=== PATIENT | male | born 1940 | race Caucasian/White ===

== ENCOUNTER 2022-01-20 19:44 | Inpatient (IN) | payer MEDICARE ==
[~2022-01-20] VITALS: Ht 180.3 cm; Wt 69.9 kg
--- NOTE | 2022-01-20 19:54 | NUR ---
MARY 89 FROM HOME FOR COMPLAINT OF GEN WEAKNESS, SOB AND LOW O2 SAT 77% ON RA. WAS SICK WITH FLU LIKE SYMPTOMS THIS TUESDAY. PT NOTED WITH CONGESTED COUGH +RHONCHI. +COVID VACCINATED. PT ARRIVED ON NRB 15LPM SATTING 98%. AWAKE AND ALERT X4 TACHYCARDIC AND AFEBRILE. PT CHANGED INTO GOWN AND PLACED ON MONITOR.
[2022-01-20] MEDS ORDERED: CEFTRIAXONE 1GM BAG (ER ONLY) 1 GM/50 ML PIGGYBACK IV ONE (20:00)
[2022-01-20] MEDS ORDERED: AZITHROMYCIN 250 MG TABLET PO ONE (20:00)
[2022-01-20] MEDS ORDERED: methylPREDNISolone SOD SUCC 125 MG/2ML VIAL IV ONE (20:00)
[2022-01-20] MEDS ORDERED: IPRATROPIUM NEB FS 0.5 MG/2.5 ML AMPUL.NEB NEB ONE (20:00)
[2022-01-20] MEDS ORDERED: ALBUTEROL FS 2.5 MG/3 ML VIAL.NEB CONTNEB ONE (20:00)
--- NOTE | 2022-01-20 20:26 | NUR ---
IV CANNULA FROM OUTSIDE IS ON THE LEFT WRIST USING G20 NEEDLE
--- NOTE | 2022-01-20 20:27 | NUR ---
COVID SWAB, INFLUENZA SWAB AND RSV SWAB DONE AND SENT TO LAB
[2022-01-20 20:31] LABS: BASOPHILS % (AUTO) 0.3 % (0.0-2.0); HEMATOCRIT 41 % (39-51); HEMOGLOBIN 13.3 g/dL (13.5-17.5); LYMPHOCYTES # (AUTO) 0.2 K/uL (0.8-4.8); LYMPHOCYTES % (AUTO) 1.5 % (20.0-44.0); MEAN CORPUSCULAR HGB CONC 33 g/dl (31.0-36.0); MEAN CORPUSCULAR VOLUME 83 fL (80-96); MONOCYTES # (AUTO) 0.8 K/uL (0.1-1.30); MONOCYTES % (AUTO) 5.9 % (2.0-12.0); NEUTROPHILS # (AUTO) 12.8 K/uL (1.8-8.9); NEUTROPHILS % (AUTO) 92.3 % (43.0-81.0); PLATELET COUNT (AUTO) 287 K/uL (150-450); RED BLOOD CELL COUNT(AUTO) 4.85 MIL/uL (4.5-6.0); WHITE BLOOD COUNT (AUTO) 13.9 K/uL (4.3-11.0)
[2022-01-20] MEDS ORDERED: methylPREDNISolone SOD SUCC 125 MG/2ML VIAL ONE (20:31)
[2022-01-20] MEDS ORDERED: AZITHROMYCIN 250 MG TABLET ONE (20:31)
[2022-01-20] MEDS ORDERED: CEFTRIAXONE 1GM BAG (ER ONLY) 50 ML IV ONE (20:31)
[2022-01-20 20:44] LABS: CHLORIDE 103 mmol/L (98-107); POTASSIUM 3.7 mmol/L (3.5-5.1); SODIUM SERUM 137 mmol/L (136-145)
[2022-01-20 21:04] LABS: ALANINE AMINOTRANSFERASE 23 U/L (12-78); ALBUMIN 2.6 g/dL (3.4-5.0); ALKALINE PHOSPHATASE 80 U/L (46-116); ASPARTATE AMINOTRANSFERASE 41 U/L (15-37); BILIRUBIN,DIRECT 0.2 mg/dL (0.0-0.2); BILIRUBIN,TOTAL 0.4 mg/dL (0.2-1.0); CALCIUM, SERUM 8.7 mg/dL (8.5-10.1); CARBON DIOXIDE 25 mmol/L (21-32); CREATININE 1.4 mg/dL (0.6-1.3); GLUCOSE 151 mg/dL (74-106); TOTAL PROTEIN, SERUM 7.8 g/dL (6.4-8.2); UREA NITROGEN, BLOOD 23 mg/dL (7-18)
--- NOTE | 2022-01-20 21:07 | NUR ---
TROP 419
[2022-01-20] MEDS ORDERED: ALBUTEROL FS 2.5 MG/3 ML VIAL.NEB ONE (21:10)
[2022-01-20] MEDS ORDERED: IPRATROPIUM NEB FS 0.5 MG/2.5 ML AMPUL.NEB ONE (21:11)
[2022-01-20] MEDS ORDERED: ENOXAPARIN SODIUM 60 MG/0.6 ML DISP.SYRIN SQ ONE (21:30)
[2022-01-20] MEDS ORDERED: ASPIRIN 325 MG TABLET PO ONE (21:30)
--- NOTE | 2022-01-20 21:32 | NUR ---
PER RT, PLACED ON 8L O2 VIA SIMPLE MASK
--- NOTE | 2022-01-20 21:38 | NUR ---
[facility] PAGED
[2022-01-21] MEDS ORDERED: ENOXAPARIN SODIUM 40 MG/0.4 ML DISP.SYRIN SQ SCH
[2022-01-21] MEDS ORDERED: IPRATROPIUM NEB FS 0.5 MG/2.5 ML AMPUL.NEB NEB PRN
[2022-01-21] MEDS ORDERED: ONDANSETRON HCL/PF 4 MG/2 ML VIAL IVP PRN
[2022-01-21] MEDS ORDERED: ALBUTEROL FS 2.5 MG/0.5 ML VIAL.NEB NEB PRN
--- NOTE | 2022-01-21 01:01 | NUR ---
PROCAL 2.96
[2022-01-21] MEDS ORDERED: ASPIRIN 325 MG TABLET ONE (01:27)
[2022-01-21] MEDS ORDERED: ENOXAPARIN SODIUM 60 MG/0.6 ML DISP.SYRIN SQ ONE (01:27)
--- NOTE | 2022-01-21 05:00 | NUR ---
PT IS SLEEPING
[2022-01-21 05:09] LABS: BASOPHILS % (AUTO) 0.1 % (0.0-2.0); HEMATOCRIT 42 % (39-51); HEMOGLOBIN 13.4 g/dL (13.5-17.5); LYMPHOCYTES # (AUTO) 0.3 K/uL (0.8-4.8); LYMPHOCYTES % (AUTO) 1.8 % (20.0-44.0); MEAN CORPUSCULAR HGB CONC 32 g/dl (31.0-36.0); MEAN CORPUSCULAR VOLUME 86 fL (80-96); MONOCYTES # (AUTO) 0.4 K/uL (0.1-1.30); MONOCYTES % (AUTO) 2.3 % (2.0-12.0); NEUTROPHILS # (AUTO) 18.4 K/uL (1.8-8.9); NEUTROPHILS % (AUTO) 95.8 % (43.0-81.0); PLATELET COUNT (AUTO) 276 K/uL (150-450); RED BLOOD CELL COUNT(AUTO) 4.87 MIL/uL (4.5-6.0); WHITE BLOOD COUNT (AUTO) 19.2 K/uL (4.3-11.0)
[2022-01-21 05:33] LABS: CHOLESTEROL 94 mg/dL (<200); HDL CHOLESTEROL 52 mg/dL (40-60); LDL 35 mg/dL (0-99); TRIGLYCERIDES 34 mg/dL (30-150)
[2022-01-21 05:34] LABS: CARBON DIOXIDE 25 mmol/L (21-32); CHLORIDE 103 mmol/L (98-107); CREATININE 1.4 mg/dL (0.6-1.3); GLUCOSE 160 mg/dL (74-106); MAGNESIUM 2.2 mg/dL (1.8-2.4); PHOSPHORUS 4.2 mg/dL (2.5-4.9); SODIUM SERUM 137 mmol/L (136-145); UREA NITROGEN, BLOOD 25 mg/dL (7-18)
[2022-01-21] MEDS ORDERED: methylPREDNISolone SOD SUCC 40 MG/ML VIAL ONE (06:05)
[2022-01-21] MEDS: methylPREDNISolone SOD SUCC 40 MG/ML VIAL IV SCH ×2 (06:05→12:16)
--- NOTE | 2022-01-21 08:11 | NUR ---
BED 107
--- NOTE | 2022-01-21 08:18 | NUR ---
REPORT GIVEN TO NIK JACKSON FOR STEFANIA
--- NOTE | 2022-01-21 09:03 | NUR ---
TRANSFERRED TO BED 108 IN STABLE CONDITION
[2022-01-21] MEDS: CARVEDILOL 3.125 MG TABLET PO SCH ×2 (09:51→21:00)
[2022-01-21] MEDS: ENOXAPARIN SODIUM 60 MG/0.6 ML DISP.SYRIN SQ SCH ×2 (09:54→21:43)
--- NOTE | 2022-01-21 10:00 | NUR ---
ADMISSION NOTES PT ARRIVED ON UNIT WITH DX OF PNA AND HYPOXIA. PT IS A/O X 4. PT STATED HE HAD 3 RECENT FALLS. NO MEDICAL HISTORY AND NO KNOWN ALLERGIES. PT IS ON SIMPLE MASK 8L SATING AT 100%. PT IS FINE DURING MEALS AND COULD BE TITRATED DOWN. ALL WOUNDS DOCUMENTED WITH PICTURES. TELE READS SR. PT ON REG DIET. EATING >75%. IV ACCESS NOTED AT LFA 20G. NO FLUIDS RUNNING AT THIS TIME. ALL SAFETY MEASURES IN PLACE, FALL PRECAUTIONS IN PLACE. WILL CONT. TO MONITOR THROUGHOUT SHIFT.
[2022-01-21 12:00] VITALS: BP 107/67
[2022-01-21 16:00] VITALS: BP 99/62
--- NOTE | 2022-01-21 18:30 | NUR ---
RN CLOSING NOTES PT IS RESTING IN BED, PT IS A/O X 4. PT IS ON SIMPLE MASK 8L SATING AT 100%. PT IS FINE DURING MEALS AND COULD BE TITRATED DOWN. TELE READS SR. IV ACCESS NOTED AT LFA 20G. NO FLUIDS RUNNING AT THIS TIME. ALL SAFETY MEASURES IN PLACE, FALL PRECAUTIONS IN PLACE. WILL ENDORSE TO HOUSEKEEPING AIDE RN FOR STEFANIA.
[2022-01-21 18:54] LABS: SITE, VBG Right Radial; VBG COHb 0.1 %; VBG MetHb 0.4 %; VBG O2Hb 98.7 %
--- NOTE | 2022-01-21 19:15 | NUR ---
RN NOTE PATIENT IN BED, ON SEMI JEFFESRON'S, AAO X 4, IN NO ACUTE DISTRESS, SATURATION AT 93% ON 8L VIA SIMPLE MASK, SR ON THE MONITOR, HR IS 72. IV LINE AT LFA 20G PATENT AND FLUSHING WELL, NO S/S OF INFECTION OR INFILTRATION, SALINE LOCKED. PT IS CONTINENT AND ABLE TO USE URINAL. SAFETY MEASURES IN PLACE, BED IS LOCKED AND AT LOWEST POSITION, CALL LIGHT WITHIN REACH OF PATIENT. WILL CONT TO MONITOR AND REASSESS.
[2022-01-21 20:00] VITALS: BP 106/77
[2022-01-21] MEDS: AZITHROMYCIN 500 MG in IV D5W 250 ML IV SCH (21:37)
[2022-01-21] MEDS: CEFTRIAXONE 1 G in IV D5W 50 ML IV SCH (22:48)
[2022-01-22] VITALS: BP 112/73
[2022-01-22] MEDS: IV NS 0.9% 1,000 ML IV PRN ×2 (00:01→14:45)
[2022-01-22 04:00] VITALS: BP 118/68
[2022-01-22 05:55] LABS: HEMATOCRIT 41 % (39-51); LYMPHOCYTES # (AUTO) 0.6 K/uL (0.8-4.8); LYMPHOCYTES % (AUTO) 2.8 % (20.0-44.0); MEAN CORPUSCULAR HGB CONC 32 g/dl (31.0-36.0); MEAN CORPUSCULAR VOLUME 84 fL (80-96); MONOCYTES # (AUTO) 0.7 K/uL (0.1-1.30); MONOCYTES % (AUTO) 3.2 % (2.0-12.0); NEUTROPHILS # (AUTO) 21.2 K/uL (1.8-8.9); PLATELET COUNT (AUTO) 264 K/uL (150-450); RED BLOOD CELL COUNT(AUTO) 4.83 MIL/uL (4.5-6.0); WHITE BLOOD COUNT (AUTO) 22.6 K/uL (4.3-11.0)
[2022-01-22 06:17] LABS: CALCIUM, SERUM 8.8 mg/dL (8.5-10.1); CARBON DIOXIDE 27 mmol/L (21-32); CHLORIDE 105 mmol/L (98-107); CREATININE 1.4 mg/dL (0.6-1.3); GLUCOSE 127 mg/dL (74-106); POTASSIUM 4.4 mmol/L (3.5-5.1); SODIUM SERUM 138 mmol/L (136-145); UREA NITROGEN, BLOOD 43 mg/dL (7-18)
[2022-01-22 06:24] LABS: ALANINE AMINOTRANSFERASE 17 U/L (12-78); ALBUMIN 2.1 g/dL (3.4-5.0); ALKALINE PHOSPHATASE 68 U/L (46-116); ASPARTATE AMINOTRANSFERASE 30 U/L (15-37); BILIRUBIN,TOTAL 0.2 mg/dL (0.2-1.0); MAGNESIUM 2.3 mg/dL (1.8-2.4); PHOSPHORUS 3.3 mg/dL (2.5-4.9); TOTAL PROTEIN, SERUM 7.3 g/dL (6.4-8.2)
--- NOTE | 2022-01-22 07:00 | NUR ---
RN NOTES RECEIVED PT ON BED, A/Ox4, ON 8L O2 N/C , O2 SAT WNL, NO DISTESS NOTED, IV SITE CDI, NS AT 75 CC/HR RUNNING , SR UP x3, CALL LIGHT WITHIN EASY REACH, BED LOCKED AND IN LOWEST POSITION, CONTINUE TO MONITOR. Addendum: 01/22/22 at 0727 by JANES ZUNIGA RN CORRECTION 8 L O2 FACE MASK
[2022-01-22 08:00] VITALS: BP 118/68
[2022-01-22] MEDS: CARVEDILOL 3.125 MG TABLET PO SCH ×2 (09:07→21:54)
[2022-01-22] MEDS: ENOXAPARIN SODIUM 60 MG/0.6 ML DISP.SYRIN SQ SCH (09:08)
--- NOTE | 2022-01-22 10:00 | NUR ---
RN notes Reduced oxygen from 8L to 5L and changed means of delivery from face mask to nasal cannula. Patient's Spo2 was around 95%, RR WNL, no SOB or labored breathing noted.
--- NOTE | 2022-01-22 10:16 | NUR ---
WOUND CARE CONSULT: REVIEWED CHART, NURSING DOCUMENTATION AND SPOKE WITH NURSING STAFF. PER ABOVE DOCUMENTATION AND RN, PT HAS DRY ABRASIONS TO POSTERIOR SCALP, PRESENT ON ADMISSION. CURRENT BRIAN SCORE IS 19. WILL SEE PRN.
[2022-01-22 12:00] VITALS: BP 109/67
--- NOTE | 2022-01-22 14:00 | NUR ---
RN notes Tried to tail down oxygen further to 4L, but desaturated to 92% despite normal breathing effort, RR 20/min. Increased oxygen back to 5L.
[2022-01-22 15:06] LABS: *SPE A/G RATIO 0.6 (0.7-1.7); *SPE ALPHA-1-GLOBULIN 0.6 g/dL (0.0-0.4); *SPE ALPHA-2-GLOBULIN 1.2 g/dL (0.4-1.0); *SPE BETA GLOBULIN 1.1 g/dL (0.7-1.3); *SPE M-SPIKE Not Observed g/dL (Not Observed)
--- NOTE | 2022-01-22 15:30 | NUR ---
RN notes Urine specimen was sent.
[2022-01-22 16:01] VITALS: BP 103/70
[2022-01-22 16:15] LABS: BILIRUBIN,URINE NEGATIVE (NEGATIVE); COLOR,URINE YELLOW (YELLOW); LEUKOCYTE ESTERASE ,URINE 1+ (NEGATIVE); NITRITE, URINE NEGATIVE (NEGATIVE); PROTEIN,URINE 1+ mg/dl (NEGATIVE); UGLUCOSE NEGATIVE (NEGATIVE); UROBILINOGEN,URINE 0.2 EU/dL (0.2)
[2022-01-22 17:09] LABS: BACTERIA,URINE 2+ /HPF (None Seen); COARSE GRANULAR CASTS,URINE RARE /LPF (None Seen); RBC,URINE 21-50 /HPF (0-2); SQUAMOUS EPITHELIAL CELL,UR 0-2 /HPF (None Seen)
--- NOTE | 2022-01-22 18:19 | NUR ---
RN notes Patient tolerated 5L oxygen via NC well, RR WNL. Afebrile in this shift despite increase in WBC, will continue to monitor fever and WBC trend, continue antibiotics. V.S. was stable without discomfort reported. Patient ate well. Addendum: 01/22/22 at 1823 by ROVERTO MENESES RN Telemetry in place, HR in the 80s. ALL SAFETY MEASURES IN PLACE, FALL PRECAUTIONS IN PLACE. WILL ENDORSE TO ERGONOMIC SPECIALIST RN FOR STEFANIA.
--- NOTE | 2022-01-22 19:00 | NUR ---
RN NOTE PATIENT IN BED, ON SEMI JEFFERSON'S, AAO X 4, IN NO ACUTE DISTRESS, SATURATION AT 96% ON 5L VIA NC, SR ON THE MONITOR, HR IS 74. IV LINE AT LFA 20G PATENT AND FLUSHING WELL, WITH NS INFUSING AT 75 ML/HR, NO S/S OF INFECTION OR INFILTRATION. PT IS CONTINENT AND ABLE TO USE URINAL. SAFETY MEASURES IN PLACE, BED IS LOCKED AND AT LOWEST POSITION, CALL LIGHT WITHIN REACH OF PATIENT. WILL CONT TO MONITOR AND REASSESS.
[2022-01-22 20:00] VITALS: BP 131/69
[2022-01-22] MEDS: AZITHROMYCIN 500 MG in IV D5W 250 ML IV SCH (21:54)
[2022-01-22] MEDS: CEFTRIAXONE 1 G in IV D5W 50 ML IV SCH (21:54)
[2022-01-23] VITALS: BP 122/68
[2022-01-23 04:00] VITALS: BP 120/64
--- NOTE | 2022-01-23 04:40 | NUR ---
RN NOTE PT CONTACTED NURSING STATION C/O SOB. O2 SAT OF 92% ON NC 5 LPM. PERFORMED BACK PERCUSSION AND PT ABLE TO COUGH UP THICK BROWN SPUTUM. RT NOTIFIED TO CONDUCT BREATHING TX.
[2022-01-23 06:26] LABS: HEMATOCRIT 39 % (39-51); HEMOGLOBIN 12.8 g/dL (13.5-17.5); LYMPHOCYTES # (AUTO) 0.7 K/uL (0.8-4.8); LYMPHOCYTES % (AUTO) 5.5 % (20.0-44.0); MEAN CORPUSCULAR HGB CONC 33 g/dl (31.0-36.0); MEAN CORPUSCULAR VOLUME 84 fL (80-96); MONOCYTES # (AUTO) 0.7 K/uL (0.1-1.30); MONOCYTES % (AUTO) 5.8 % (2.0-12.0); NEUTROPHILS # (AUTO) 10.6 K/uL (1.8-8.9); NEUTROPHILS % (AUTO) 88.7 % (43.0-81.0); PLATELET COUNT (AUTO) 248 K/uL (150-450); RED BLOOD CELL COUNT(AUTO) 4.67 MIL/uL (4.5-6.0); WHITE BLOOD COUNT (AUTO) 11.9 K/uL (4.3-11.0)
[2022-01-23 06:56] LABS: CALCIUM, SERUM 8.4 mg/dL (8.5-10.1); MAGNESIUM 1.9 mg/dL (1.8-2.4); PHOSPHORUS 2.9 mg/dL (2.5-4.9); POTASSIUM 4.2 mmol/L (3.5-5.1)
[2022-01-23] MEDS: IV NS 0.9% 1,000 ML IV PRN (07:17)
--- NOTE | 2022-01-23 07:30 | NUR ---
TIMBER FRAMER HELPER OPENING NOTES: RECEIVED PATIENT IN BED ASLEEP BUT EASILY AROUSES TO VOICE AND SOUND. PATIENT IS ALERT, ORIENTED X 3. PATIENT IN NO RESPIRATORY DISTRESS NOTED AT THIS TIME. NO SOB, BREATHING EVEN AND UNLABORED. ON OXYGEN @ 5L/MIN VIA N/C WITH OXYGEN SATURATION OF 92%. ON SR WITH HR OF 67. PATIENT HAS IV ACCESS ON RIGHT FOREARM WITH NS RUNNING @ 75 ML/HR, IV SITE PATENT, NO S/S INFILTRATION NOTED. PATIENT USES URINAL AND VOIDS, YELLOW COLORED, URINE, NO HEMATURIA AND NO SEDIMENTATION NOTED. BED LOCKED AND IN LOWEST POSITION. ALL SAFETY MEASURES IN PLACE. CALL LIGHT WITHIN REACH. WILL CONTINUE TO MONITOR PATIENT THROUGHOUT SHIFT.
[2022-01-23 08:00] VITALS: BP 119/64
[2022-01-23] MEDS: CARVEDILOL 3.125 MG TABLET PO SCH ×2 (08:27→21:46)
[2022-01-23] MEDS: ENOXAPARIN SODIUM 40 MG/0.4 ML DISP.SYRIN SQ SCH (08:29)
[2022-01-23 12:00] VITALS: BP 99/60
[2022-01-23 16:00] VITALS: BP 120/64
--- NOTE | 2022-01-23 18:47 | NUR ---
TOWER EQUIPMENT REPAIRER CLOSING NOTES: PATIENT IN BED, AWAKE, ALRT, ORIENTED X 3. PATIENT IN NO ACUTE RESPIRATORY DISTRESS. ON OXYGEN @ 5L/MIN VIA N/C WITH OXYGEN SATURATION OF 93%. PATIENT HAS NO EPISODE OF SOB THE ENTIRE SHIFT. ON SR ON TELE MONITOR WITH HR OF 75. WILL ENDORSE TO NEXT SHIFT NURSE FOR CONTINUITY OF CARE..
[2022-01-23 20:00] VITALS: BP 116/61
--- NOTE | 2022-01-23 20:00 | NUR ---
EFFICIENCY MANAGER CLOSING NOTES: PATIENT IN BED, AWAKE, ALERT, ORIENTED X 3. NO SOB NO DISTRESS NO ACUTE RESPIRATORY DISTRESS. ON OXYGEN @ 5L/MIN VIA N/C WITH OXYGEN SATURATION OF 94%. ON SR ON TELE MONITOR WITH HR OF 72. DUE MEDS GIVEN ORDERED. NO ASE NOTED WILL CONTINUE TO MONITOR PTS . Addendum: 01/23/22 at 2234 by DANIELLE LAWRENCE RN THIS NOTE IS FOR OPENING NOTES NOT CLOSING NOTES.
[2022-01-23] MEDS: AZITHROMYCIN 500 MG in IV D5W 250 ML IV SCH (20:30)
[2022-01-23] MEDS: CEFTRIAXONE 1 G in IV D5W 50 ML IV SCH (21:40)
[2022-01-24] VITALS: BP 121/66
[2022-01-24 04:00] VITALS: BP 128/76
--- NOTE | 2022-01-24 06:46 | NUR ---
FERN PICKER CLOSING NOTES: PATIENT IN BED, AWAKE, ALERT, ORIENTED X 3. NO SOB NO DISTRESS NOTED . NO ACUTE RESPIRATORY DISTRESS. ON OXYGEN @ 5L/MIN VIA N/C WITH OXYGEN SATURATION OF 93%. PATIENT HAS NO EPISODE OF SOB THE ENTIRE SHIFT. ON SR ON TELE MONITOR WITH HR OF 75. WILL ENDORSE TO NEXT SHIFT NURSE FOR CONTINUITY OF CARE..
--- NOTE | 2022-01-24 07:22 | NUR ---
HOT METAL CRANE OPERATOR OPENING NOTES RECEIVED PT ON BED, A/Ox4, ON 5L O2 N/C , O2 SAT ABOVE 95, NO DISTRESS NOTED, IV SITE PATENT INTACT AND FLUSHED WELL , SR UP x3, CALL LIGHT WITHIN EASY REACH, BED LOCKED AND IN LOWEST POSITION,WILL CONTINUE TO MONITOR.
[2022-01-24 08:00] VITALS: BP 139/79
[2022-01-24] MEDS: ENOXAPARIN SODIUM 40 MG/0.4 ML DISP.SYRIN SQ SCH (09:04)
[2022-01-24] MEDS: CARVEDILOL 3.125 MG TABLET PO SCH ×2 (09:05→21:42)
[2022-01-24 12:00] VITALS: BP 113/72
[2022-01-24 16:00] VITALS: BP 123/79
--- NOTE | 2022-01-24 19:20 | NUR ---
PANEL FITTER CLOSING NOTES: PATIENT IN BED, AWAKE, ALERT, ORIENTED X 3. PATIENT IN NO ACUTE RESPIRATORY DISTRESS. ON OXYGEN @ 5L/MIN VIA N/C WITH OXYGEN SATURATION OF 93%. PATIENT HAS NO EPISODE OF SOB THE ENTIRE SHIFT. ON SR ON TELE MONITOR WITH HR OF 75. WILL ENDORSE TO NEXT SHIFT NURSE FOR CONTINUITY OF CARE..
[2022-01-24 20:00] VITALS: BP 125/87
--- NOTE | 2022-01-24 20:30 | NUR ---
RECEIVED PT ON BED, A/Ox3, ON 5L O2 VIA N/C , NO DISTRESS NOTED, IV ACCESS ON RT FA G#[address] ON SL. TELE MONITOR IN PLACE. URINAL AT BEDSIDE. ALL SAFETY MEASURES IN PLACE: BED IN LOWEST AND LOCKED POSITION, CALL LIGHT WITHIN REACH ,BED ALARM ON, SIDE RAILS UP X2. MAINTAINED ISOLATION PRECAUTION. WILL CONTINUE PLAN OF CARE.
[2022-01-24] MEDS: CEFTRIAXONE 1 G in IV D5W 50 ML IV SCH (21:41)
[2022-01-24] MEDS: AZITHROMYCIN 500 MG in IV D5W 250 ML IV SCH (21:41)
[2022-01-24] MEDS: SENNOSIDES 8.6 MG TABLET PO SCH (21:42)
[2022-01-24] MEDS: ACETAMINOPHEN 325 MG TABLET PO PRN (21:51)
[2022-01-25] VITALS: BP 124/71
[2022-01-25 04:00] VITALS: BP 104/66
--- NOTE | 2022-01-25 06:56 | NUR ---
PT ON BED AWAKE, A/Ox3, ON 5L O2 VIA N/C , NO DISTRESS NOTED, IV ACCESS ON RT FA G#[address] ON SL. TELE MONITOR IN PLACE. URINAL AT BEDSIDE. ALL SAFETY MEASURES IN PLACE: BED IN LOWEST AND LOCKED POSITION, CALL LIGHT WITHIN REACH ,BED ALARM ON, SIDE RAILS UP X2. MAINTAINED ISOLATION PRECAUTION. WILL ENDORSE TO NEXT NURSE ON DUTY FOR CONTINUITY OF CARE.
[2022-01-25 07:36] LABS: CALCIUM, SERUM 8.8 mg/dL (8.5-10.1); PHOSPHORUS 3.2 mg/dL (2.5-4.9); POTASSIUM 3.8 mmol/L (3.5-5.1)
--- NOTE | 2022-01-25 07:45 | NUR ---
RN OPENING NOTE RECEIVED PT ON BED, A/Ox3, ON 5L O2 VIA N/C 90%, NO DISTRESS NOTED, IV ACCESS ON RT FA G#[address] ON SL. TELE MONITOR IN PLACE SR. URINAL AT BEDSIDE. ALL SAFETY MEASURES IN PLACE: BED IN LOWEST AND LOCKED POSITION, CALL LIGHT WITHIN REACH ,BED ALARM ON, SIDE RAILS UP X2. WILL CONTINUE PLAN OF CARE.
[2022-01-25 08:00] VITALS: BP 134/70
[2022-01-25 08:35] LABS: BASOPHILS % (AUTO) 0.1 % (0.0-2.0); EOSINOPHILS % (AUTO) 0.4 % (0.0-6.0); HEMATOCRIT 42 % (39-51); HEMOGLOBIN 13.5 g/dL (13.5-17.5); LYMPHOCYTES # (AUTO) 1.3 K/uL (0.8-4.8); LYMPHOCYTES % (AUTO) 15.6 % (20.0-44.0); MEAN CORPUSCULAR HGB CONC 32 g/dl (31.0-36.0); MEAN CORPUSCULAR VOLUME 83 fL (80-96); MONOCYTES % (AUTO) 11.3 % (2.0-12.0); NEUTROPHILS # (AUTO) 6.3 K/uL (1.8-8.9); NEUTROPHILS % (AUTO) 72.6 % (43.0-81.0); PLATELET COUNT (AUTO) 249 K/uL (150-450); RED BLOOD CELL COUNT(AUTO) 5.04 MIL/uL (4.5-6.0); WHITE BLOOD COUNT (AUTO) 8.6 K/uL (4.3-11.0)
[2022-01-25] MEDS: CARVEDILOL 3.125 MG TABLET PO SCH ×2 (09:40→23:02)
[2022-01-25] MEDS: ENOXAPARIN SODIUM 40 MG/0.4 ML DISP.SYRIN SQ SCH (09:41)
--- NOTE | 2022-01-25 11:14 | NUR ---
WOUND CARE CONSULT: PT PRESENTS WITH DRY ABRASIONS TO POSTERIOR SCALP, ABRASIONS TO BILATERAL KNEES, PRESENT ON ADMISSION. LEFT LOWER BACK RAISED LESION NOTED, NO DRAINAGE OR ERYTHEMA. SURGICAL CONSULT CALLED TO DR NUNN. RECOMMENDATIONS MADE FOR WOUND CARE AND SKIN PROTECTION. DISCUSSED WITH NURSING STAFF. PT IS WORKING WITH Radha PEREZ IN AGREEMENT WITH PLAN OF CARE.
--- NOTE | 2022-01-25 11:27 | NUR ---
RN NOTE PATIENT'S FAMILY IS REFUSING FOR PATIENT TO BE DISCHARGED UNLESS PATIENT CAN BREATHE ON ROOM AIR.
[2022-01-25 12:00] VITALS: BP 106/64
[2022-01-25] MEDS: NEOMY SULF/BACITRAC ZN/POLY 15 GM TUBE TP SCH (13:54)
[2022-01-25 16:00] VITALS: BP 125/75
[2022-01-25 20:00] VITALS: BP 113/68
[2022-01-25] MEDS: SENNOSIDES 8.6 MG TABLET PO SCH (23:02)
[2022-01-25] MEDS: CEFTRIAXONE 1 G in IV D5W 50 ML IV SCH (23:02)
[2022-01-26] VITALS: BP 92/61
--- NOTE | 2022-01-26 00:09 | NUR ---
RN CLOSING NOTE PT IN BED, A/Ox3, BREATHING ON 5L O2 VIA N/C 93%, NO DISTRESS NOTED, IV ACCESS ON RT FA 20GAUGE. TELE MONITOR IN PLACE SR WITH HR 70. URINAL AT BEDSIDE. ALL SAFETY MEASURES IN PLACE: BED IN LOWEST AND LOCKED POSITION, CALL LIGHT WITHIN REACH ,BED ALARM ON, SIDE RAILS UP X2. WILL ENDORSE CONTINUITY OF CARE TO CLAIMS COLLECTOR
--- NOTE | 2022-01-26 00:35 | NUR ---
RN NOTES: RECEIVED REPORT FROM CHONG JACKSON
[2022-01-26 04:00] VITALS: BP 102/66
--- NOTE | 2022-01-26 06:33 | NUR ---
RN CLOSING NOTES: PT IN BED, AWAKE, A/Ox3-4 AND VERBALLY RESPONSIVE. BREATHING EVEN AND UNLABORED. ON O2 AT 5L/MIN VIA N/C AND PT TOLERATED WELL. O2 SAT 92%. IV ACCESS ON RFA# 20G INTACT AND PATENT. NO S/S OF INFILTRATIONS. NO C/O PAIN OR DISCOMFORT. NO ACUTE DISTRESS. ALL SAFETY MEASURES IN PLACE: BED IN LOWEST POSITION AND LOCKED, PLACE CALL LIGHT WITHIN REACH ,BED ALARM ON, SIDE RAILS UP X2. WILL ENDORSE TO MORNING SHIFT NURSE.
--- NOTE | 2022-01-26 07:47 | NUR ---
RN NOTE PT RECEIVED RESTING IN BED, AWAKE ALERT AND VERBALLY RESPONSIVE. WITH O2 @5L VIA NC @5L. NOT IN RESPI DISTRESS. RFA G20 IN PLACE WITH NO IVF RUNNING. SAFETY MEASURES IN PLACE. WILL CONTINUE TO MONITOR.
[2022-01-26 08:00] VITALS: BP 105/60
[2022-01-26] MEDS: CARVEDILOL 3.125 MG TABLET PO SCH ×2 (09:00→21:00)
[2022-01-26] MEDS: ENOXAPARIN SODIUM 40 MG/0.4 ML DISP.SYRIN SQ SCH (09:13)
[2022-01-26] MEDS: NEOMY SULF/BACITRAC ZN/POLY 15 GM TUBE TP SCH (09:17)
[2022-01-26 12:00] VITALS: BP 129/69
[2022-01-26 16:00] VITALS: BP 132/66
--- NOTE | 2022-01-26 17:57 | NUR ---
RN NOTE PT RESTING IN BED, AWAKE ALERT AND VERBALLY RESPONSIVE. WITH O2 @4L VIA NC @5L. NOT IN RESPI DISTRESS. WITH O2 SAT OF 91-93. RFA G20 IN PLACE WITH NO IVF RUNNING. DUE MEDICATIONS GIVEN. AM/PM CARE DONE. SAFETY MEASURES IN PLACE. WILL CONTINUE TO MONITOR.
--- NOTE | 2022-01-26 19:32 | NUR ---
RN OPENING NOTES: RECEIVED PT IN BED, AWAKE, A/Ox3-4 AND VERBALLY RESPONSIVE. BREATHING EVEN AND UNLABORED. ON O2 AT 4L/MIN VIA N/C AND PT TOLERATED WELL. IV ACCESS ON RFA# 20G INTACT AND PATENT. NO S/S OF INFILTRATIONS. NO C/O PAIN OR DISCOMFORT. NO ACUTE DISTRESS. ALL SAFETY MEASURES IN PLACE: BED IN LOWEST POSITION AND LOCKED, PLACE CALL LIGHT WITHIN REACH ,BED ALARM ON, SIDE RAILS UP X2. ABLE TO USE URINAL. WILL CONTINUE TO MONITOR
[2022-01-26 20:00] VITALS: BP 104/64
--- NOTE | 2022-01-26 21:31 | NUR ---
RN NOTES: HOLD COREG BECAUSE BP- 104/64, PULSE- 78. NO S/S OF HYPER/HYPOTENSION. WILL CONTINUE TO MONITOR
[2022-01-26] MEDS: CEFTRIAXONE 1 G in IV D5W 50 ML IV SCH (21:38)
[2022-01-26] MEDS: SENNOSIDES 8.6 MG TABLET PO SCH (21:39)
[2022-01-27] VITALS: BP 123/68
[2022-01-27] MEDS: ACETAMINOPHEN 325 MG TABLET PO PRN (01:07)
[2022-01-27 04:00] VITALS: BP 121/69
[2022-01-27 06:39] LABS: BASOPHILS % (AUTO) 0.2 % (0.0-2.0); EOSINOPHILS % (AUTO) 2.3 % (0.0-6.0); HEMATOCRIT 41 % (39-51); HEMOGLOBIN 13.4 g/dL (13.5-17.5); LYMPHOCYTES # (AUTO) 1.8 K/uL (0.8-4.8); LYMPHOCYTES % (AUTO) 23.2 % (20.0-44.0); MEAN CORPUSCULAR HGB CONC 33 g/dl (31.0-36.0); MEAN CORPUSCULAR VOLUME 83 fL (80-96); MONOCYTES # (AUTO) 1.1 K/uL (0.1-1.30); MONOCYTES % (AUTO) 13.3 % (2.0-12.0); NEUTROPHILS # (AUTO) 4.8 K/uL (1.8-8.9); PLATELET COUNT (AUTO) 335 K/uL (150-450); RED BLOOD CELL COUNT(AUTO) 4.91 MIL/uL (4.5-6.0); WHITE BLOOD COUNT (AUTO) 7.9 K/uL (4.3-11.0)
--- NOTE | 2022-01-27 06:40 | NUR ---
RN CLOSING NOTES: PT IN BED, AWAKE, A/Ox3-4 AND VERBALLY RESPONSIVE. BREATHING EVEN AND UNLABORED. ON O2 AT 4L/MIN VIA N/C AND PT TOLERATED WELL. O2 SAT 92%. ABLE TO USE URINAL. IV ACCESS ON RFA# 20G INTACT AND PATENT. NO S/S OF INFILTRATIONS. NO C/O PAIN OR DISCOMFORT. NO ACUTE DISTRESS. ALL DUE MEDS GIVEN ORDERED. ALL SAFETY MEASURES IN PLACE: BED IN LOWEST POSITION AND LOCKED, PLACE CALL LIGHT WITHIN REACH ,BED ALARM ON, SIDE RAILS UP X2. WILL ENDORSE TO MORNING SHIFT NURSE.
[2022-01-27 06:43] LABS: ALANINE AMINOTRANSFERASE 29 U/L (12-78); ALBUMIN 2.2 g/dL (3.4-5.0); ALKALINE PHOSPHATASE 68 U/L (46-116); ASPARTATE AMINOTRANSFERASE 26 U/L (15-37); BILIRUBIN,TOTAL 0.3 mg/dL (0.2-1.0); CALCIUM, SERUM 8.5 mg/dL (8.5-10.1); CARBON DIOXIDE 29 mmol/L (21-32); CHLORIDE 102 mmol/L (98-107); CREATININE 1.1 mg/dL (0.6-1.3); GLUCOSE 98 mg/dL (74-106); MAGNESIUM 2.1 mg/dL (1.8-2.4); PHOSPHORUS 3.1 mg/dL (2.5-4.9); POTASSIUM 3.9 mmol/L (3.5-5.1); SODIUM SERUM 136 mmol/L (136-145); TOTAL PROTEIN, SERUM 7.6 g/dL (6.4-8.2); UREA NITROGEN, BLOOD 21 mg/dL (7-18)
--- NOTE | 2022-01-27 07:00 | NUR ---
RN NOTE RECEIVED PATIENT IN BED RESTING ALERT ORIENTED X3-4 VERBALLY RESPONSIVE ON 4L OXYGEN VIA NASAL CANNULA O2:92% IV SITE IS ON RIGHT FOREARM INTACT PATENT,CONTIENT BOWEL/BLADDER,SAFETY MEASURE IMPLEMENT BED IN LOW POSITION AND LOCKED,BED ALARM IS ON,CALL LIGHT WITHIN REACH,CONTINUE TO MONITOR.
[2022-01-27 08:00] VITALS: BP 120/70
[2022-01-27] MEDS: CARVEDILOL 3.125 MG TABLET PO SCH (09:14)
[2022-01-27] MEDS: NEOMY SULF/BACITRAC ZN/POLY 15 GM TUBE TP SCH (09:14)
[2022-01-27] MEDS: ENOXAPARIN SODIUM 40 MG/0.4 ML DISP.SYRIN SQ SCH (09:15)
--- NOTE | 2022-01-27 10:20 | NUR ---
RN NOTE KEEP PATIENT ON 2L OXYGEN VIA NC O2:92% CONTINUE TO MONITOR.
[2022-01-27 12:00] VITALS: BP 114/71
--- NOTE | 2022-01-27 14:30 | NUR ---
SENIOR DATA SCIENTIST NOTE PATIENT DISCHARGE HOME IN STABLE CONDITION,ALERT ORIENTATED X3-4 VERBALLY RESPONSIVE ON 2L OXYGEN O2:92% IV REMOVED NO BLEEDING NOTED,DRESSING INTACT.EDUCATION GIVEN REGARDING MEDS AND FOLLOWING PRIMARY MD,PATIENT AND HIS VERBALIZED UNDERSTOOD ALL TEACHING,HID SIGNED DISCHARGE PAPERS AND BELONGINGS,PATIENT LEFT HOSPITAL IN STABLE CONDITION WITH HIS AND DAUGHTER BY PRIVATE CAR.
== END 2022-01-27 14:49 | disposition home health service (06) | DRG 871 ==
LOC: ER 19:51 → TRANSITION 01-21 02:18 → TELE-TD 01-21 08:17 → TELE1 01-22 11:14 → MEDSG1 01-27 08:25
PROVIDERS: ADMIT Nurse Practitioner Acute Care
DX: A41.9 Sepsis, unspecified organism (principal); G92.8 Other toxic encephalopathy; I21.A1 Myocardial infarction type 2; J15.9 Unspecified bacterial pneumonia; J96.01 Acute respiratory failure with hypoxia; N17.0 Acute kidney failure with tubular necrosis; E44.0 Moderate protein-calorie malnutrition; J44.0 Chronic obstructive pulmonary disease with (acute) lower respiratory infection; J44.1 Chronic obstructive pulmonary disease with (acute) exacerbation; N39.0 Urinary tract infection, site not specified; Z20.822 Contact with and (suspected) exposure to COVID-19; D64.9 Anemia, unspecified; E88.09 Other disorders of plasma-protein metabolism, not elsewhere classified; E86.0 Dehydration; L72.3 Sebaceous cyst; S80.212A Abrasion, left knee, initial encounter; X58.XXXA Exposure to other specified factors, initial encounter; S80.211A Abrasion, right knee, initial encounter; Y92.9 Unspecified place or not applicable; R65.20 Severe sepsis without septic shock; R73.9 Hyperglycemia, unspecified
CPT/HCPCS: 36415; 36600; 70450-TC; 71045-TC; 76770-TC; 80048-TC; 80053-TC; 80061-TC; 80076-TC; 81001; 82803-TC; 83605-TC; 83735-TC; 83880; 84100-TC; 84155; 84165; 84484-TC; 85025-TC; 87040-TC; 87081-TC; 87086-TC; 93307-TC; 97110-TC; 97116-TC; 97530-TC; C9803; G0378; J0456; J0696; J1650; J2405; J2920; J2930; J7030; J7050; J7060; U0003